=== PATIENT | female | born 1995 | race Caucasian/White ===

== ENCOUNTER 2018-04-29 05:00 | Emergency (ER) | payer SELFPAY ==
--- NOTE | 2018-04-29 06:01 | ED PDOC ---
HPI: Headache Time Seen by Provider: 04/29/18 05:29 Chief Complaint (Nursing): Headache Chief Complaint (Provider): Headache History Per: Patient History/Exam Limitations: no limitations Additional Complaint(s): 22 y/o female with no significant PMHx presents to the ED complaining of right sided headache. Patient also reports having pain in neck, shoulder, and upper back. Patient denies fall or injury and also reports having 3 episodes of vomiting. Denies taking any medication prior to arrival. Denies vision changes, weakness, numbness. Headache is not a thunderclap headache and is gradual in onset. Past Medical History Reviewed: Historical Data, Nursing Documentation, Vital Signs Vital Signs: Last Vital Signs Temp 99.3 F 04/29/18 05:16 Pulse 97 H 04/29/18 05:16 Resp 16 04/29/18 05:16 BP 126/78 04/29/18 05:16 Pulse Ox 97 04/29/18 05:16 - Medical History PMH: No Chronic Diseases - Surgical History Surgical History: No Surg Hx - Family History Family History: States: Unknown Family Hx - Home Medications Home Medications: Ambulatory Orders Medication Instructions Recorded Ciprofloxacin [Cipro] 500 mg PO BID #14 tab 11/29/15 Ondansetron ODT [Zofran ODT] 4 mg PO TID #21 odt 11/29/15 Ibuprofen [Motrin Tab] 600 mg PO Q6 #30 tab 04/29/18 - Allergies Allergies/Adverse Reactions: Allergies Allergy/AdvReac Type Severity Reaction Status Date / Time No Known Allergies Allergy Verified 04/29/18 05:16 Review of Systems ROS Statement: Except As Marked, All Systems Reviewed And Found Negative Eyes: Negative for: Vision Change Gastrointestinal: Positive for: Vomiting Musculoskeletal: Positive for: Neck Pain, Shoulder Pain, Back Pain (upper) Neurological: Positive for: Headache. Negative for: Weakness, Numbness Physical Exam - Reviewed Nursing Documentation Reviewed: Yes Vital Signs Reviewed: Yes - Physical Exam Appears: Positive for: Well, Non-toxic, No Acute Distress Head Exam: Positive for: ATRAUMATIC, NORMOCEPHALIC Skin: Positive for: Normal Color, Warm, DRY Eye Exam: Positive for: EOMI, Normal appearance, PERRL Neck: Positive for: Normal, Painless ROM, Supple Cardiovascular/Chest: Positive for: Regular Rate, Rhythm. Negative for: Murmur Respiratory: Positive for: Normal Breath Sounds. Negative for: Respiratory Distress Gastrointestinal/Abdominal: Positive for: Normal Exam, Soft. Negative for: Tenderness Back: Positive for: Normal Inspection Extremity: Positive for: Normal ROM Neurologic/Psych: Positive for: Alert, Oriented. Negative for: Motor/Sensory Deficits - ECG O2 Sat by Pulse Oximetry: 97 (RA) Pulse Ox Interpretation: Normal Medical Decision Making Medical Decision Making: Time: 05:34 Initial Impression: Well appearing 22 y/o female presenting with headache and vomiting. Most likely tension headceh vs migrain. Not concerned for acute intracranial pathology. Will treat symptomatically. Initial Plan: * Motrin 600 mg PO * Zofran 8 mg 7AM Patient feeling better Advised to followup in clinic Well appearing upon discharge Tolerating PO Scribe Attestation: Documented by Enmanuel Duke acting as a scribe for Paco Arreguin MD. Provider Scribe Attestation: All medical record entries made by the Scribe were at my direction and personally dictated by me. I have reviewed the chart and agree that the record accurately reflects my personal performance of the history, physical exam, medical decision making, and the department course for this patient. I have also personally directed, reviewed, and agree with the discharge instructions and disposition. Disposition - Clinical Impression Clinical Impression: Headache - Patient ED Disposition Is Patient to be Admitted: No - Disposition Referrals: Rachelle Pritchard MD [Family Provider] - Disposition: Routine/Home Disposition Time: 07:01 Condition: IMPROVED Prescriptions: Ibuprofen [Motrin Tab] 600 mg PO Q6 #30 tab Instructions: Migraine Headaches in Adults Forms: [facility] (Telugu) Print Language: BARBADIAN
[2018-04-29 07:24] VITALS: BP 132/74; PULSE 85; RESP 17; TEMP 98.2; O2SAT 99
== END 2018-04-29 07:17 | disposition home or self-care (01) ==
LOC: H.ER 05:00
DX: R51 Headache (principal); R11.10 Vomiting, unspecified